=== PATIENT | female | born 2000 | race American Indian/Alaskan Native ===

== ENCOUNTER 2021-09-08 09:54 | Emergency (ER) | payer MEDICAID ==
[2021-09-08 10:00] VITALS: BP 116/73
== END 2021-09-08 13:50 | disposition left against medical advice (07) ==
LOC: ED 09:54
DX: R11.2 Nausea with vomiting, unspecified (principal); Z53.21 Procedure and treatment not carried out due to patient leaving prior to being seen by health care provider